=== PATIENT | male | born 1945 | race Caucasian/White ===

== ENCOUNTER 2018-12-03 03:38 | Inpatient (IN) | payer MEDICARE, BC ==
[~2018-12-03] VITALS: Ht 175.3 cm; Wt 99.8 kg
[2018-12-03 03:49] VITALS: BP 145/93
[2018-12-03] MEDS ORDERED: CARVEDILOL (03:52)
[2018-12-03] MEDS ORDERED: METFORMIN HCL500 MG (03:52)
[2018-12-03] MEDS ORDERED: XARELTO20 MG PO (03:52)
[2018-12-03] MEDS ORDERED: ASPIR 8181 MG PO (03:53)
[2018-12-03] MEDS ORDERED: LISINOPRIL (03:53)
[2018-12-03] MEDS ORDERED: ISOSORBIDE (03:53)
[2018-12-03] MEDS ORDERED: SIMVASTATIN (03:53)
[2018-12-03 04:31] LABS: ABSOLUTE BASOPHILS 0.1 thou/uL (0.0-0.2); ABSOLUTE EOSINOPHILS 0.4 thou/uL (0.0-0.7); ABSOLUTE LYMPHOCYTES 2.9 thou/uL (0.8-5.3); ABSOLUTE MONOCYTES 0.8 thou/uL (0.0-1.2); ABSOLUTE NEUTROPHILS 9.3 thou/uL (1.6-8.1); BASOPHILS 0.7 %; EOSINOPHILS 3.1 %; HEMOGLOBIN 14.6 gm/dL (14.0-18.0); LYMPHOCYTES 21.3 %; MCH 31.5 pg (26.0-34.0); MCHC 33.9 g/dL (28.0-37.0); MCV 92.9 fL (80.0-100.0); MONOCYTES 6.3 %; MPV 9.1 fl. (7.2-11.1); NUCLEATED RBCS 0 /100WBC; PLATELET COUNT* 243 thou/uL (150-400); POLYS 68.6 %; RBC 4.63 mil/uL (4.50-6.00); RDW-CV 13.2 % (10.5-14.5); WBC 13.5 thou/uL (4.0-11.0)
[2018-12-03 04:42] LABS: INR 1.3; PROTIME 13.3 Seconds (9.20-11.50)
[2018-12-03 04:45] LABS: ANION GAP 9 mmol/L (7-16); BUN 21 mg/dL (7-18); CALCIUM 9.6 mg/dL (8.5-10.1); CHLORIDE 101 mmol/L (98-107); CO2 29 mmol/L (21-32); CREATININE 1.3 mg/dL (0.6-1.3); GLUCOSE 196 mg/dL (70-99); POTASSIUM 4.4 mmol/L (3.5-5.1); SODIUM 139 mmol/L (136-145)
[2018-12-03 04:49] LABS: ALBUMIN 3.7 g/dL (3.4-5.0); ALKALINE PHOSPHATASE 32 U/L (46-116); NT-PRO BRAIN NAT PEPTIDE 332 pg/mL (<300); SGOT 18 U/L (15-37); SGPT 21 U/L (30-65); TOTAL BILIRUBIN 0.3 mg/dL (<0.1-1.0); TOTAL PROTEIN 7.9 g/dL (6.4-8.2); TROPONIN-I LEVEL <0.06 ng/mL (<0.06)
[2018-12-03 10:15] VITALS: BP 147/60
[2018-12-03 10:49] LABS: URINE BILIRUBIN NEGATIVE (Negative); URINE BLOOD NEGATIVE (Negative); URINE CLARITY CLEAR; URINE COLOR YELLOW; URINE GLUCOSE-RANDOM NEGATIVE (Negative); URINE KETONES NEGATIVE (Negative); URINE LEUKOCYTES-REFLEX NEGATIVE (Negative); URINE NITRITE-REFLEX NEGATIVE (Negative); URINE PROTEIN NEGATIVE (Negative); URINE SPECIFIC GRAVITY <= 1.005 (1.005-1.030); URINE UROBILINOGEN 0.2 E.U./dl (0.2-1.0)
[2018-12-03] MEDS ORDERED: METFORMIN HCL500 MG PO (11:03)
[2018-12-03] MEDS ORDERED: COREG25 MG PO (11:03)
[2018-12-03] MEDS ORDERED: LISINOPRIL20 MG PO (11:04)
[2018-12-03] MEDS ORDERED: NITROGLYCERIN0.4 MG SUBLING (11:04)
[2018-12-03] MEDS ORDERED: IMDUR 60 MG TAB60 M1 PO (11:04)
[2018-12-03] MEDS ORDERED: LASIX 20 MG TAB20 MG PO (11:04)
[2018-12-03] MEDS ORDERED: ZOCOR20 MG PO (11:05)
[2018-12-03 11:44] LABS: CHOLESTEROL 110 mg/dL (<200); HDL CHOLESTEROL 50 mg/dL (>40); LDL CHOLESTEROL 52 mg/dL (<100); TC:HDL 2.2 Ratio (Not establshd); TRIGLYCERIDE 44 mg/dL (<150); VLDL 9 mg/dL (<40)
[2018-12-03 11:55] LABS: SERUM ASSESSMENT Clear
--- NOTE | 2018-12-03 13:11 | EKG ---
[place] [address] ELECTROCARDIOGRAM REPORT Name: SHARRI OLIVEIRA Room: [place] [address] ADM IN [facility].#: [id number] Admission: 12/03/18 Attend Phys: Debbie Fermin MD Discharge: Date of : 47 Report #: [id number] THIS REPORT FOR: //name// [facility] ED Test Date: 2018-12-03 Test Time: 03:43:26 Pat Name: SHARRI OLIVEIRA Department: Room: [facility] Gender: Statistics Teacher: Lanette MELENDREZ : 1945 Requested By: Emilia Sirnivasan Order Number: [id number] MD: Dalton Rahman Measurements Intervals [place] Rate: 76 P: 79 MT: 129 QRS: -70 QRSD: 177 T: 113 QT: 433 QTc: 487 Interpretive Statements ventricular paced beats No further analysis attempted due to paced rhythm No previous ECG available for comparison Electronically Signed On 12-03-2018 13:10:55 HOUSING DIRECTOR by Dalton Rahman [email or web address] <ELECTRONICALLY SIGNED> By: Dalton Rahman MD, [facility] 12/03/18 1310 0343 0343 Dalton Rahman MD, FACC /EPI
[2018-12-03 14:51] VITALS: BP 156/69
[2018-12-03 19:10] VITALS: BP 145/58
[2018-12-04] VITALS: BP 142/60
[2018-12-04 04:00] VITALS: BP 139/60
[2018-12-04 04:50] LABS: MCH 30.9 pg (26.0-34.0); MCHC 33.2 g/dL (28.0-37.0); MCV 93.1 fL (80.0-100.0); MPV 8.8 fl. (7.2-11.1); RBC 4.19 mil/uL (4.50-6.00); RDW-CV 12.9 % (10.5-14.5); WBC 11.4 thou/uL (4.0-11.0)
[2018-12-04 04:59] LABS: CALCIUM 8.4 mg/dL (8.5-10.1); CREATININE 1.1 mg/dL (0.6-1.3); POTASSIUM 3.9 mmol/L (3.5-5.1)
[2018-12-04 07:32] VITALS: BP 141/60
[2018-12-04 11:20] VITALS: BP 141/60
[2018-12-04 11:47] VITALS: BP 141/60
[2018-12-04 11:58] VITALS: BP 135/71
--- NOTE | 2018-12-04 16:22 | CARD ---
[address] [address] CARDIAC CATH REPORT Name: TEESHARRI J Room: [address]#: [id number] Admission: 12/03/18 Attend Phys: Debbie Fermin MD Discharge: 12/04/18 Date of : 47 Report #: [id number] THIS REPORT FOR: //name// APPROVED REPORT Study performed: 12/03/2018 14:29:51 Patient Details Patient Status: In-Patient Room #: The patient is a 73 year-old male Event Personnel Martin Taylor Amortization Clerk, Enzo Gutierrez Hintermaier, Elena RN RN, Yuan Lovelace Blick, David (R) Quick Mixer Operator Procedures Performed Left Heart Cath w/or w/o Coronaries [id number] LHC and attempted PTCA Indication Cardiomyopathy, Chest pain Risk Factors Coronary Artery Disease Previous Procedures/Diagnoses Previous PCI Admission/Lab Medications/Medications given during procedure Heparin Unfract. Procedure Narrative The patient was brought electively to the Cardiac Catheterization Laboratory and was prepped and draped in a sterile manner. The right wrist was infiltrated with 1% Lidocaine subcutaneous anesthesia. A Slender Glidesheath sheath was inserted into the right radial artery. Coronary angiography was performed using coronary diagnostic catheters. The right coronary system was accessed and visualized with a 6FR XB 3.0 [id number] 6fr catheter. The left coronary system was accessed and visualized with a 6FR XB 3.0 100CM catheter. The left ventricle was accessed and visualized with a Angled PIG catheter. Left ventricular/Aortic Valve gradient assessed via catheter pullback. Left ventriculogram was performed in OJEDA projection. Closure device was deployed with a 6 [place] [address] CARDIAC CATH REPORT Name: TEESHARRI J Room: [address]#: [id number] Admission: 12/03/18 Attend Phys: Debbie Fermin MD Discharge: 12/04/18 Date of : 47 Report #: [id number] tolerated the procedure well and there were no complications associated with the procedure. There was no hematoma. Intraoperative Conscious Sedation Fentanyl 75.0 mcg Fluoro Time: 13.4 minutes Dose: DAP [id number] cGycm2 124 mGy Contrast Type and Amount: Omnipaque 200 ml Coronary Angiography The patient's coronary anatomy is right dominant. Diagnostic Cath Left Main normal. LAD Widely patent stent proximally. The mid and distal vessel are free of significant disease. Diagonal 1 Proximal stent with subtotal occlusion that appears chronic. Distal vessel fills faintly via antegrade flow. Diagonal 2 Normal. Circumflex Widely patent stent proximally. The mid and distal vessel are free of significant disease. OM1 Small in caliber and normal. OM2 Large branched vessel that is normal. Right Coronary Totally occluded proximally. The distal vessel appears faintly by left to right collateral. R PDA Filled by [id number] collaterals. RPLV Filled by [id number] collaterals. Left Ventriculography The left ventricle is moderately dilated in size with severely decreased contractility. The left ventricular ejection fraction is estimated to be 20%. Left ventricular wall motion abnormalities are present. The left ventricle is dilated and left ventricular systolic function severely decreased. The mid to distal anterior and apical mcelroy appear akinetic. Hemodynamics The aortic pressure is 126/55 mmHg with a mean of 90 mmHg. The left ventricular pressure is 117/18 mmHg with a mean of mmHg. The left ventricular end diastolic pressure is 27 mmHg. PCI Technique Lesion Anticoagulation was achieved with Heparin. Percutaneous coronary intervention was performed on the first diagonal branch segment. The lesion stenosis prior to intervention was 90% with EL[place]IO 2 [place] [address] CARDIAC CATH REPORT Name: SHARRI OLIVEIRA Room: [address] IN [facility]#: [id number] Admission: 12/03/18 Attend Phys: Debbie Fermin MD Discharge: 12/04/18 Date of : 47 Report #: [id number] xb3.0 Guide Catheter was used to engage the lm ostium. BALLOON DILATION Attempted to use xb4.0 guide which was too large. Attempted to pass BMW wire through the stent in the first diagonal branch. Unalbe to pass wire. Attempted to pass Whisper wire which also was unable to pass. Decided to abandon further attempts at angioplasty. It appeared the occlusion may have represented a chronic subtotal occlusion of a stent in a small vessel. Final angiography reveals 90 % stenosis with ELADIO flow. Conclusion 1. no restenosis of stents in the lad and circumflex 2. chronically occluded rca that filled by collaterals 3. severe LV systolic dysfunction 4. subtotal occlusion of a stent in a small diagonal branch. Unable to pass guide wire through the stent. Recommendations Cardiac Rehabilitation Referral Aggressive Medical Therapy Diagnostic Cath Approved by: Martin Taylor MD Date/Time: <ELECTRONICALLY SIGNED> By: Dalton Rahman MD, FACC 12/04/18 1622 21 1622Dtj Rhaman MD, FACC /INF
--- NOTE | 2018-12-04 16:30 | EKG ---
[place] [address] ELECTROCARDIOGRAM REPORT Name: SHARRI OLIVEIRA Room: [address] IN M.R.#: [id number] Admission: 12/03/18 Attend Phys: Debbie Fermin MD Discharge: 12/04/18 Date of : 47 Report #: [id number] THIS REPORT FOR: //name// [facility] Test Date: 2018-12-04 Test Time: 09:38:04 Pat Name: SHARRI OLIVEIRA Department: Room: [address] Gender: M Water Pump Assembler: : 1945 Requested By: Jackson Del Rosario Order Number: [id number] Magi MD: Dalton Rahman Measurements Intervals [place] Rate: 124 P: 0 MO: 42 QRS: 12 QRSD: 161 T: 172 QT: 373 QTc: 536 Interpretive Statements Ventricular-paced complexes No further analysis attempted due to paced rhythm Compared to ECG 12/03/2018 03:43:26 rate increased Electronically Signed On 12-04-2018 16:30:22 RELIGIOUS ASSISTANT by Dalton Rahman [email or web address] <ELECTRONICALLY SIGNED> By: Dalton Rahman MD, [facility] 12/04/18 1630 0938 0938 Dalton Rahman MD, [facility] /EPI
--- NOTE | 2018-12-08 14:12 | CON ---
[address] [address] CONSULTATION Name: SHARRI OLIVEIRA Room: [address] IN M.R.#: [id number] Admission: 12/03/18 Attend Phys: Debbie Fermin MD Discharge: 12/04/18 Date of : 47 Report #: [id number] THIS REPORT FOR: //name// CC: Eliceo Hamilton MD [facility] physician/PCP Debbie Fermin DATE OF SERVICE: 12/03/2018 INDICATION: Non-ST elevation myocardial infarction. HISTORY OF PRESENT ILLNESS: The patient is a 73-year-old gentleman with known coronary artery disease. He reports having stents placed on 3 separate occasions in the remote past. He reports heart attacks in 1994 and 1998. He reports a history of complete heart block, status post pacemaker placement. He presented to the Emergency Room with complaints of nausea, vomiting, lightheadedness and dizziness followed by a midsternal chest discomfort radiating to the arms bilaterally. Initial troponin was less than 0.06 with subsequent troponin of 0.42. EKG showed a paced rhythm without acute ST or T-wave abnormality. The patient was given medication in the Emergency Room and is pain free at the time of my interview. He states that he has been having episodes of lightheadedness and dizziness over the past 4-6 weeks, attributed to hypoglycemia relieved with orange juice. He has no cardiac complaints outside of the presenting symptoms. CURRENT MEDICATIONS: Aspirin 81 mg daily, carvedilol 25 mg b.i.d., furosemide 20 mg daily, isosorbide 60 mg daily, lisinopril 20 mg daily, metformin 500 mg b.i.d., Nitrostat p.r.n., Xarelto 20 mg daily, simvastatin 20 mg at bedtime. PAST MEDICAL HISTORY: 1. Coronary artery disease. 2. Hypertension. 3. Type 2 diabetes mellitus. 4. Complete heart block status post pacemaker placement. SOCIAL HISTORY: The patient is a lifelong nonsmoker. He does not drink alcohol. FAMILY HISTORY: Noncontributory. PHYSICAL EXAMINATION: VITAL SIGNS: Blood pressure 147/60, pulse 69 and regular. GENERAL: This is a pleasant gentleman who appears to be in no distress[place] [address] CONSULTATION Name: SHARRI OLIVEIRA Lan[place] Room: [address]#: [id number] Admission: 12/03/18 Attend Phys: Debbie Fermin MD Discharge: 12/04/18 Date of : 47 Report #: [id number] HEENT: Extraocular muscles intact. Mucous membranes are moist. NECK: Shows no jugular venous distention. There are no carotid bruits. CHEST: Reveals clear lung bardales. CARDIAC: Reveals a regular rhythm with normal S1 and S2. I do not appreciate gallop or murmur. ABDOMEN: Reveals normal bowel sounds. The abdomen is soft, nontender. EXTREMITIES: Shows no edema. Peripheral pulses are 2+ and easily palpable. SKIN: Warm and dry. LABORATORY DATA: Reviewed. CBC within normal limits with the exception of a white blood cell count of 13.5. Sodium 139, potassium 4.4, chloride 101, bicarbonate 29, BUN 21, creatinine 1.3, serum glucose 196. Initial troponin less than 0.06. Subsequent troponins 0.42 and 0.53. Total cholesterol 110, LDL 52, HDL 50, triglycerides 44. IMPRESSION AND RECOMMENDATIONS: 1. Non-ST elevation myocardial infarction. We will proceed with urgent cardiac catheterization and probable intervention. We will continue daily aspirin and probable additional antiplatelet therapy post-catheterization. 2. Diabetes per hospitalist. 3. Hypertension, adequately controlled at present. <ELECTRONICALLY SIGNED> By: Martin Taylor MD, FACC 12/08/18 1412 1229 1652[facility] Taylor MD, FACC /nt
== END 2018-12-04 12:35 | disposition home or self-care (01) | DRG 280 ==
LOC: M.ERS 03:38 → M.2W 06:18 → M.TBA-ER 06:18 → M.2W 16:56
PROVIDERS: Emergency Medicine; Internal Medicine; ADMIT Internal Medicine
PROC: B2151ZZ Fluoroscopy of Left Heart using Low Osmolar Contrast (ICD-10-PCS; principal; 2018-12-03)
PROC: 02JA3ZZ Inspection of Heart, Percutaneous Approach (ICD-10-PCS; principal; 2018-12-03)
PROC: 4A023N7 Measurement of Cardiac Sampling and Pressure, Left Heart, Percutaneous Approach (ICD-10-PCS; principal; 2018-12-03)
PROC: B2111ZZ Fluoroscopy of Multiple Coronary Arteries using Low Osmolar Contrast (ICD-10-PCS; principal; 2018-12-03)
DX: I21.4 Non-ST elevation (NSTEMI) myocardial infarction (principal); I50.21 Acute systolic (congestive) heart failure; I11.0 Hypertensive heart disease with heart failure; R42 Dizziness and giddiness; I25.10 Atherosclerotic heart disease of native coronary artery without angina pectoris; E11.9 Type 2 diabetes mellitus without complications; I25.5 Ischemic cardiomyopathy; I48.0 Paroxysmal atrial fibrillation; I44.30 Unspecified atrioventricular block; I25.2 Old myocardial infarction; Z95.0 Presence of cardiac pacemaker; Z79.899 Other long term (current) drug therapy